=== PATIENT | female | born 1955 | race Caucasian/White ===

== ENCOUNTER 2020-01-06 17:46 | Observation (INO) | payer MEDICARE ==
[~2020-01-06] VITALS: Ht 160 cm; Wt 89.0 kg
[2020-01-06 18:40] LABS: BASOPHILS ABSOLUTE AUTO 0.07 K/mm3 (0.00-0.23); BASOPHILS PERCENT AUTO 1 % (0-2); EOSINOPHILS ABSOLUTE AUTO 0.09 K/mm3 (0.00-0.68); EOSINOPHILS PERCENT AUTO 1 % (0-6); Hematocrit 36.3 % (33.0-51.0); IMMATURE GRAN ABSOLUTE AUTO 0.07 K/mm3 (0.00-0.10); IMMATURE GRAN PERCENT AUTO 1 % (0-1); LYMPHOCYTES ABSOLUTE AUTO 4.14 K/mm3 (0.84-5.20); LYMPHOCYTES PERCENT AUTO 29 % (21-46); MONOCYTES ABSOLUTE AUTO 1.35 K/mm3 (0.16-1.47); MONOCYTES PERCENT AUTO 9 % (4-13); Mean Corpuscular HGB 31.2 pg (26.0-34.0); Mean Corpuscular HGB Conc 33.1 g/dL (31.5-36.5); Mean Corpuscular Volume 94 fL (80-100); Mean Platelet Volume 10.5 fL (9.1-12.4); NEUTROPHILS ABSOLUTE AUTO 8.72 K/mm3 (1.96-9.15); NEUTROPHILS PERCENT AUTO 60 % (41-73); Platelet Count 412 K/mm3 (150-400); RDW Coefficient Variation 13.4 % (11.7-14.2); RDW Standard Deviation 46.5 fL (35.1-46.3); Red Blood Cell Count 3.85 M/mm3 (3.80-5.20); White Blood Cell Count 14.44 K/mm3 (4.00-11.30)
[2020-01-06 18:58] LABS: Alanine Aminotransfer (ALT/SGP 22 U/L (12-78); Albumin, Blood 3.6 g/dL (3.4-5.0); Albumin/Globulin Ratio 0.9 (0.8-1.8); Alk Phos 91 U/L (50-136); Anion Gap 7 mmol/L (6-16); Aspartate Aminotrans (AST/SGOT 19 U/L (12-37); Bilirubin, Total 0.6 mg/dL (0.1-1.0); Blood Urea Nitrogen 16 mg/dL (8-24); Bun/Creatinine Ratio 17.1 (12.0-20.0); CO2, Blood 30 mmol/L (21-32); Calcium, Blood 9.2 mg/dL (8.5-10.1); Chloride, Blood 95 mmol/L (98-108); Creatinine, Blood 0.94 mg/dL (0.40-1.00); Globulin, Blood 4.2 g/dL (2.2-4.0); Glomerular Filtration Rate >60 (60-); Glucose, Blood 100 mg/dL (70-99); Potassium, Blood 3.5 mmol/L (3.5-5.5); Sodium, Blood 132 mmol/L (136-145); Total Protein, Blood 7.8 g/dL (6.4-8.2)
[2020-01-06] MEDS ORDERED: Avidoxy100 MG PO (21:36)
[2020-01-06] MEDS ORDERED: HYDROCODONE-AC1 EAC8 PO (21:36)
[2020-01-06] MEDS ORDERED: NEURONTIN300 MG PO (21:36)
[2020-01-06] MEDS ORDERED: EUTHYROX25 MC1 PO (21:36)
[2020-01-06] MEDS ORDERED: TIZANIDINE HCL2 M2 PO (21:37)
[2020-01-06] MEDS ORDERED: FOSAMAX70 MG PO (21:37)
[2020-01-06] MEDS ORDERED: LATANOPROST2.5 M1 BOTHEYES (21:52)
[2020-01-06] MEDS ORDERED: Toprol Xl200 MG PO (21:53)
[2020-01-06] MEDS ORDERED: LOSARTAN-HCTZ1 EAC5 PO (21:53)
[2020-01-06] MEDS ORDERED: Chantix1 MG PO (21:55)
[2020-01-06] MEDS ORDERED: ATORVASTATIN CA20 MG PO (21:55)
[2020-01-06] MEDS ORDERED: Amitriptyline100 MG PO (22:22)
--- NOTE | 2020-01-06 23:30 | NUR ---
REPORT RECEIVED FROM ADDIE ED RN. PT TRANSPORTED TO MEDICAL FLOOR VIA GURNEY, PIVOTED SELF TO HOSPITAL BED. A&O, PLEASANT, COOPERATIVE. NO ACUTE SIGNS OF DISTRESS NOTED. O2 SATS STABLE ON 3L O2/NC. ORIENTED TO ROOM AND UNIT, REMINDED TO CALL WITH NEEDS. INDICATED UNDERSTANDING. DENIES NEEDS AT THIS TIME, CALL LIGHT, POSSESSIONS IN REACH. WILL CONTINUE TO MONITOR.
--- NOTE | 2020-01-07 01:00 | NUR ---
SPOKE TO DR. SON REGARDING PT'S SODIUM LEVEL. NO NEW ORDERS RECEIVED. CONTINUE TO MONITOR.
--- NOTE | 2020-01-07 07:50 | NUR ---
SHIFT SUMMARY PT HAS HAD NO ACUTE CHANGES IN CONDITION SINCE ARRIVAL TO MEDICAL FLOOR. VSS, O2 SATS STABLE ON 3L O2/NC. CALLED APPROPRIATELY FOR NEEDS. WAS MONITORED EVERY 1-2 HOURS WITH NEEDS MET. DENIES NEEDS AT THIS TIME. CALL LIGHT, POSSESSIONS IN REACH. REPORT GIVEN TO DAY RN.
--- NOTE | 2020-01-07 17:21 | NUR ---
DISCHARGE DISCHARGE INSTRUCTIONS, MEDICATION LIST AND FOLLOW UP APPOINTMENT REVIEWED WITH PT. SHE HAS A NEW PT APPOINTMENT AT [facility] ON AND SHE WILL KEEP THAT APPOINTMENT. SHE IS WAITING FOR HER S.O. TO RETURN AND PICK HER UP
--- NOTE | 2020-01-07 17:48 | NUR ---
DISCHARGE PT ESCORTED OUT BY [facility] VIA W/C
== END 2020-01-07 17:40 | disposition home or self-care (01) ==
LOC: ER 17:46 → MEDS 17:47
PROVIDERS: Physician Assistant; ADMIT Internal Medicine
DX: J44.9 Chronic obstructive pulmonary disease, unspecified (principal); I10 Essential (primary) hypertension; G89.29 Other chronic pain; M54.9 Dorsalgia, unspecified; E87.1 Hypo-osmolality and hyponatremia; D72.829 Elevated white blood cell count, unspecified; J96.11 Chronic respiratory failure with hypoxia; F17.210 Nicotine dependence, cigarettes, uncomplicated; Z88.8 Allergy status to other drugs, medicaments and biological substances; Z79.899 Other long term (current) drug therapy
CPT/HCPCS: 71046; 80053; 85025; 94640; 94664; 94667; 94760; 94761; 98960; 99284-25; 99406; A9270-GY; G0378; J1650